=== PATIENT | male | born 1995 | race Caucasian/White ===

== ENCOUNTER 2016-06-16 00:05 | Emergency (ER) | payer OTHER ==
[~2016-06-16] VITALS: Ht 167.6 cm; Wt 79.4 kg
[2016-06-16 00:17] VITALS: BP 125/95
--- NOTE | 2016-06-16 00:40 | NUR ---
TO ER BED 4
--- NOTE | 2016-06-16 00:45 | NUR ---
PT IS 21/M BIB SELF TO ED WITH C/O PALPITATION WITH SOB X 1 HR HAS APPOINTMENT WITH PCP FOR SOB ON 06/22. DENIES N/V/D; SKIN IS PINK/WARM/DRY; AAOX4 WITH EVEN AND STEADY GAIT; LUNGS CLEAR BL; HR EVEN AND REGULAR; PT DENIES ANY FEVER, CP, OR COUGH AT THIS TIME; PATIENT STATES PAIN OF 0/10 AT THIS TIME; VSS; PATIENT POSITIONED FOR COMFORT; HOB ELEVATED; BEDRAILS UP X2; BED DOWN. ER MD MADE AWARE OF PT STATUS.
[2016-06-16] MEDS ORDERED: LORazepam 1 MG TAB PO ONE (01:15)
[2016-06-16 01:51] VITALS: BP 125/95
--- NOTE | 2016-06-16 01:51 | NUR ---
Patient discharged with v/s stable. Written and verbal after care instructions given and explained. Patient alert, oriented and verbalized understanding of instructions. Ambulatory with steady gait. All questions addressed prior to discharge. ID band removed. Patient advised to follow up with PMD. Rx of FLONASE 50MCG, XANAX 0.5MG AND OXYMETAZOLINE HCL given. Patient educated on indication of medication including possible reaction and side effects. Opportunity to ask questions provided and answered.
== END 2016-06-16 01:51 | disposition home or self-care (01) ==
LOC: MED 00:05
DX: F41.9 Anxiety disorder, unspecified (principal); J30.9 Allergic rhinitis, unspecified; R03.0 Elevated blood-pressure reading, without diagnosis of hypertension

== ENCOUNTER 2016-06-30 01:30 | Emergency (ER) | payer OTHER ==
[~2016-06-30] VITALS: Ht 172.7 cm; Wt 81.2 kg
[2016-06-30 01:44] VITALS: BP 132/76
--- NOTE | 2016-06-30 02:06 | NUR ---
TO ER OF1
--- NOTE | 2016-06-30 02:12 | NUR ---
Patient being evaluated by physician.
--- NOTE | 2016-06-30 02:13 | NUR ---
21Y/M PATIENT PRESENTS TO ED WITH C/O TOOTHACHE . PT STATES HAVING TOOTHACHE X 1WK, HAVE APPOINTMENT WITH THE DENTIST TODAY, PAIN INCREASE. DENIES N/V/D; SKIN IS PINK/WARM/DRY; AAOX4 WITH EVEN AND STEADY GAIT; LUNGS CLEAR BL; HR EVEN AND REGULAR; PT DENIES ANY FEVER, CP, SOB, OR COUGH AT THIS TIME; PATIENT STATES PAIN OF 10/10 AT THIS TIME; VSS;ER MD MADE AWARE OF PT STATUS.
[2016-06-30] MEDS ORDERED: HYDROcodone/APAP 10/325 MG 1 TAB TAB PO ONE (02:15)
[2016-06-30] MEDS ORDERED: MORPHINE SULFATE 4 MG/ML SYR IM ONE (02:50)
--- NOTE | 2016-06-30 03:17 | NUR ---
Patient discharged with v/s stable. Written and verbal after care instructions given and explained. Patient alert, oriented and verbalized understanding of instructions. Ambulatory with steady gait. All questions addressed prior to discharge. ID band removed. Patient advised to follow up with PMD. Rx of NORCO 10/325 MG, PENICILLIN VK 500 MG given. Patient educated on indication of medication including possible reaction and side effects. Opportunity to ask questions provided and answered.
[2016-06-30 03:36] VITALS: BP 125/71
== END 2016-06-30 03:17 | disposition home or self-care (01) ==
LOC: MED 01:30
DX: K08.89 Other specified disorders of teeth and supporting structures (principal)
CPT/HCPCS: 96372; 99283; J2270